=== PATIENT | female | born 1990 | race African-American/Black ===

== ENCOUNTER 2019-12-28 04:55 | Inpatient (IN) | payer MEDICAID ==
[~2019-12-28] VITALS: Ht 157.5 cm; Wt 54.4 kg
[2019-12-28 05:50] VITALS: BP 135/79
--- NOTE | 2019-12-28 05:50 | NUR ---
MS COLLECTIONS CURATOR NOTE PATIENT IS A DIRECT ADMIT FROM [facility]. PATIENT BROUGHT BY AMBULANCE. AMBULATED TO BED WITH STEADY GAIT. A/OX4. TOLERATING ROOM AIR. RESPIRATIONS ARE EVEN AND UNLABORED. NO S/S SOB NOTED. STATES SHE IS IN PAIN, INFORMED HER I WILL NEED TO LOOK AT THE DOCTORS ORDERS AND WAIT TO SEE WHEN PHARMACY VERIFIES THE MEDICATION. IN NO APPARENT DISTRESS. IV ACCESS IN RIGHT INDEX FINGER #[id number] PATENT AND SALINE LOCKED. INATAL PHYSICAL ASSESSMENT COMPLETED. SKIN ASSESSMENT COMPLETED, SKIN IS INTACT. LIVING NURSE OBTAINED BELONGINGS LIST AND VITAL SIGNS. MRSA SWAB DONE. BED IS LOW AND LOCKED HOB FLAT, SIDE RIALS UP X2, CALL LIGHT WITHIN REACH . WILL CONTINUE TO MONITOR.
[2019-12-28] MEDS ORDERED: ACETAMINOPHEN 325 MG TABLET PO PRN (07:00)
[2019-12-28] MEDS ORDERED: ZOLPIDEM TARTRATE 5 MG TABLET PO PRN (07:00)
[2019-12-28] MEDS ORDERED: MAG HYDROX/AL HYDROX/SIMETH 30 ML UDC PO PRN (07:00)
[2019-12-28] MEDS ORDERED: MAGNESIUM HYDROXIDE 30 ML UDC PO PRN (07:00)
[2019-12-28] MEDS ORDERED: Z GUARD REMEDY 2 OZ OINT TP PRN (07:00)
--- NOTE | 2019-12-28 07:34 | NUR ---
rn notes patient received on room air, no sob noted, patient is in pain at this time but waiting for pharmacy to verify medications. R finger 22 to be infused with NS. LABS pending at this time as patient refused the morning labs and told them to come back in 2 hours.
[2019-12-28] MEDS: HYDROMORPHONE INJ 2 MG/ML DISP.SYRIN IV PRN ×4 (07:50→20:30)
[2019-12-28] MEDS: IV NS 0.9% 1,000 ML IV SCH ×3 (07:50→20:45)
[2019-12-28] MEDS ORDERED: FERR325T24 PO (07:55)
[2019-12-28] MEDS ORDERED: FOLI0.4T2 PO (07:55)
[2019-12-28] MEDS ORDERED: OXYC-133 PO (07:55)
[2019-12-28 08:00] VITALS: BP 124/78
[2019-12-28] MEDS ORDERED: DIPH25CA51 PO (08:03)
--- NOTE | 2019-12-28 08:11 | NUR ---
MANAGER SCIENTIFIC/MED RECON MED RECON UPDATED. INFO OBTAINED FROM THE PATIENT. PATIENT REQUESTING BENADRYL VIA IV. CALLED AND SPOKE WITH DR. WINTER RELAYED RE: REQUEST FOR IV BENADRYL WITH NEW ORDER FOR PO BENADRYL. PRIMARY NURSE AWARE.
--- NOTE | 2019-12-28 08:18 | NUR ---
RN NOTES Patient requested IV benadryl from MD Moe but got an order for PO benadryl instead. Patient is refusing PO because she states she needs it now. Some swelling from her arm, but she states that she gets it when she takes dilaudid.
[2019-12-28] MEDS ORDERED: diphenhydrAMINE HCL 50 MG/ML VIAL IV ONE (09:40)
[2019-12-28] MEDS: ONDANSETRON HCL/PF 4 MG/2 ML VIAL IVP PRN ×2 (09:58→12:40)
[2019-12-28] MEDS: HYDROCODONE/APAP 5/325MG 1 EACH TABLET PO PRN ×2 (09:58→23:54)
[2019-12-28] MEDS: HYDROXYUREA 500 MG CAPSULE PO SCH (11:00)
[2019-12-28] MEDS ORDERED: Folic acid 1 MG in IV D5W 50 ML IV SCH (11:00)
[2019-12-28 12:41] LABS: BASOPHILS # (AUTO) 0.1 /CMM (0.0-0.2); BASOPHILS % (AUTO) 0.9 % (0.0-2.0); EOSINOPHILS % (AUTO) 12.6 % (0.0-6.0); HEMATOCRIT 30 % (33-45); HEMOGLOBIN 9.5 g/dL (11.5-14.8); LYMPHOCYTES # (AUTO) 2.3 /CMM (0.8-4.8); LYMPHOCYTES % (AUTO) 31.2 % (20.0-44.0); MEAN CORPUSCULAR HGB CONC 31 g/dl (31.0-36.0); MEAN CORPUSCULAR VOLUME 69 fL (82-100); MONOCYTES # (AUTO) 0.5 /CMM (0.1-1.30); MONOCYTES % (AUTO) 7.1 % (2.0-12.0); NEUTROPHILS # (AUTO) 3.6 /CMM (1.8-8.9); NEUTROPHILS % (AUTO) 48.2 % (43.0-81.0); PLATELET COUNT (AUTO) 363 /CMM (150-450); RED BLOOD CELL COUNT(AUTO) 4.35 MIL/uL (4.0-5.2); WHITE BLOOD COUNT (AUTO) 7.5 K/uL (4.3-11.0)
[2019-12-28 12:49] LABS: BILIRUBIN,TOTAL 0.1 mg/dL (0.2-1.0); CALCIUM, SERUM 8.1 mg/dL (8.5-10.1); MAGNESIUM 1.9 mg/dL (1.8-2.4); PHOSPHORUS 3.4 mg/dL (2.5-4.9); POTASSIUM 3.4 mmol/L (3.5-5.1); TOTAL PROTEIN, SERUM 6.6 g/dL (6.4-8.2)
[2019-12-28 16:00] VITALS: BP 118/73
[2019-12-28] MEDS ORDERED: POTASSIUM CHLORIDE 20 MEQ TAB.PRT.SR PO ONE (16:00)
--- NOTE | 2019-12-28 17:46 | NUR ---
rn notes patient remains on room air, no sob noted, a/o x4. States that pain is under control. ambulatory with steady gait. R finger 22 with NS @ 100 ml per hour. Patient requesting for IV benadryl, Dr. Moe aware. Only PO benadryl available. Patient has been trying to call MD's number as well via the business card. bed at the lowest setting, call light within reach, side rails up x2.
--- NOTE | 2019-12-28 19:25 | NUR ---
RN OPENING NOTES RECEIVED PATIENT RESTING IN BED A/O X 4, STABLE ON RA WITH BREATHING EVEN AND UNLABORED, NO SOB NOTED. NO SIGNS OF ACUTE DISTRESS. NO COMPLAINTS OF PAIN OR DISCOMFORT. IV LOCATED ON R FINGER #22 RUNNING NS @ 100ML/HR. PATIENT IS AMBULATORY, SKIN IS INTACT. SAFETY MEASURES HAVE BEEN PROVIDED AND IMPLEMENTED. PATIENT BED ALARM IS ON. HEAD OF BED ELEVATED. BED IS LOCKED, IN LOWEST POSITION AND SIDE RAILS UP. CALL LIGHT WITHIN REACH OF THE PATIENT. WILL CONTINUE TO MONITOR AND REASSESS FOR ANY CHANGES.
[2019-12-28 20:00] VITALS: BP 128/67
--- NOTE | 2019-12-28 21:15 | NUR ---
Called Dr. Brown and informed him that pt is requesting for Benadryl IV as pt doesn't want Benadryl PO. Advised him that Benadryl Inj has been DC today at [address] Glaser. No new order/s given by Dr. Brown. Patient informed and set up and charger.
[2019-12-28 22:00] VITALS: BP 128/67
[2019-12-28] MEDS ORDERED: diphenhydrAMINE HCL 50 MG CAPSULE ONE (22:17)
[2019-12-28] MEDS: DIPHENHYDRAMINE HCL 12.5 MG/5 ML UDC PO PRN (22:21)
[2019-12-29] MEDS: HYDROMORPHONE INJ 2 MG/ML DISP.SYRIN IV PRN ×6 (02:33→22:53)
--- NOTE | 2019-12-29 06:32 | NUR ---
RN CLOSING NOTE: PATIENT REMAINS IN ROOM RESTING COMFORTABLY.NO SIGNS OF RESPIRATORY, ON RA;TOLERATING WELL SATURATING @ >95% SP02. PATIENT IS CLEAN , DRY AND COMFORTABLE THROUGHOUT THE SHIFT. ALL DUE MEDS GIVEN ORDERED ; PATIENT TOLERATED WELL. SAFETY MEASURES IMPLEMENTED, BED IN LOWEST POSITION, LOCKED, SIDE RAILS UP, CALL LIGHT WITHIN REACH. ENDORSED TO ONCOMING SHIFT RN FOR CONTINUITY OF CARE.
[2019-12-29 06:41] LABS: BASOPHILS # (AUTO) 0.1 /CMM (0.0-0.2); EOSINOPHILS % (AUTO) 12.8 % (0.0-6.0); HEMATOCRIT 30 % (33-45); HEMOGLOBIN 9.6 g/dL (11.5-14.8); LYMPHOCYTES # (AUTO) 2.3 /CMM (0.8-4.8); LYMPHOCYTES % (AUTO) 29.1 % (20.0-44.0); MEAN CORPUSCULAR HGB CONC 32 g/dl (31.0-36.0); MEAN CORPUSCULAR VOLUME 69 fL (82-100); MONOCYTES # (AUTO) 0.7 /CMM (0.1-1.30); MONOCYTES % (AUTO) 8.5 % (2.0-12.0); NEUTROPHILS # (AUTO) 3.8 /CMM (1.8-8.9); NEUTROPHILS % (AUTO) 48.6 % (43.0-81.0); PLATELET COUNT (AUTO) 336 /CMM (150-450); RED BLOOD CELL COUNT(AUTO) 4.38 MIL/uL (4.0-5.2); WHITE BLOOD COUNT (AUTO) 7.8 K/uL (4.3-11.0)
[2019-12-29 07:29] LABS: CALCIUM, SERUM 8.9 mg/dL (8.5-10.1); MAGNESIUM 1.9 mg/dL (1.8-2.4); PHOSPHORUS 4.2 mg/dL (2.5-4.9); POTASSIUM 3.8 mmol/L (3.5-5.1)
[2019-12-29 08:00] VITALS: BP 112/67
--- NOTE | 2019-12-29 09:20 | NUR ---
ms rn received on bed, awake,alert,oriemted x4,not in any form of distress, respirations even and unlabored,no sob noted, lungs are clear,abdomen soft,positive bowel sounds,denies pain at this time.
--- NOTE | 2019-12-29 10:00 | NUR ---
ms rn new iv site inserted at left leg q 24 w/ good venous output, right thumb, not good anymore.
--- NOTE | 2019-12-29 10:30 | NUR ---
ms rn refusing iv fluids, makes her going to the bathroom more often.
[2019-12-29] MEDS: FOLIC ACID 1 MG TABLET PO SCH (10:55)
[2019-12-29] MEDS: HYDROXYUREA 500 MG CAPSULE PO SCH (10:56)
[2019-12-29] MEDS: IV NS 0.9% 1,000 ML IV SCH ×2 (13:00→23:00)
--- NOTE | 2019-12-29 18:12 | NUR ---
ms rn on bed, no distress noted,all needs attended.
[2019-12-29 20:00] VITALS: BP 121/71
--- NOTE | 2019-12-29 20:00 | NUR ---
RN NOTES RECEIVED PT. AWAKE ON BED, A/OX4, AMBULATORY, DENIES PAIN AT THIS TIME, NO SOB, CALL LIGHT WITHIN REACH, [id number], CONTINUE TO MONITOR
--- NOTE | 2019-12-29 21:00 | NUR ---
RN NOTES COMPLAINED OF GENERALIZED PAIN- DIALUDID 2MG IV GIVEN ORDERED, V/S STABLE Addendum: 12/30/19 at 0255 by YOLIE BOYD RN WRONG NOTES
--- NOTE | 2019-12-29 21:35 | NUR ---
RN NOTES COMPLAINED OF NOT SLEEPING AND WANT TO TAKE SLEEPING PILL- PT. HAS AMBIEN 5 MG BUT SHE ONLY TOOK 2.5MG BECAUSE THIS IS THE FIRST TIME SHE'S GOING TO TAKE THIS MEDICATION
--- NOTE | 2019-12-29 22:00 | NUR ---
RN NOTES PT. CALLED AND COMPLAINED THAT SHE'S HAVING DIFFICULTY OF BREATHING AFTER TAKING AMBIEN 2.5MG PO, PUT O2 AND CHECKED PT'S VITAL SIGN, AFTER 10 MINS PT'S FEELS BETTER AND DENIES DIFFICULTY OF BREATHING
--- NOTE | 2019-12-29 23:00 | NUR ---
RN NOTES COMPLAINED OF GENERALIZED PAIN- DILAUDID 2MG IV GIVEN ORDERED, V/S STABLE
[2019-12-30] MEDS: HYDROMORPHONE INJ 2 MG/ML DISP.SYRIN IV PRN ×4 (02:39→13:37)
--- NOTE | 2019-12-30 02:52 | NUR ---
RN NOTES COMPLAINED OF GENERALIZED PAIN- DILAUDID 2MG IV GIVEN ORDERED, V/ STABLE
[2019-12-30] MEDS: DIPHENHYDRAMINE HCL 12.5 MG/5 ML UDC PO PRN (03:38)
--- NOTE | 2019-12-30 06:40 | NUR ---
RN NOTES COMPLAINED OF GENERALIZED PAIN- DILAUDID 2MG IV GIVEN ORDERED, V/S STABLE, MORNING CARE RENDERED, PT. NEEDS ATTENDED
--- NOTE | 2019-12-30 07:55 | NUR ---
MS/RN OPENING NOTES RECEIVED PATIENT IN BED, ASLEEP, ALERT AND ORIENTED X 4. BREATHING EVEN AND UNLABORED. SHOWS NO SIGNS OF ACUTE RESPIRATORY DISTRESS, COMPLAINED OF PAIN RATE 03/29, WILL CHECKED MEDICATION ORDER. SAFETY PRECAUTIONS IN PLACE. BED IN LOWEST POSITION, LOCKED, AND CALL LIGHT KEPT WITHIN REACH. WILL CONTINUE TO MONITOR.
[2019-12-30 08:31] VITALS: BP 96/56
[2019-12-30] MEDS: HYDROXYUREA 500 MG CAPSULE PO SCH (09:00)
[2019-12-30] MEDS: FOLIC ACID 1 MG TABLET PO SCH (09:21)
[2019-12-30] MEDS: IV NS 0.9% 1,000 ML IV SCH (09:57)
--- NOTE | 2019-12-30 15:07 | NUR ---
MS/RN NOTES PATIENT IS ALERT AND ORIENTED X4. DENIES PAIN AT THIS TIME. PATIENT IN ROOM AIR AND SATURATION IS AT 98%. RESPIRATION REGULAR AND UNLABORED. THE PATIENT IN NO APPARENT DISTRESS. SEEN AND EXAMINED BY MD WITH ORDERS MADE AND CARRIED OUT. ALL DUE MEDICATION WAS GIVEN. PATIENT WAS GIVEN DISCHARGED INSTRUCTIONS AND PATIENT VERBALIZED UNDERSTANDING. PATIENT LEFT THE HOSPITAL IN STABLE CONDITION. 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
== END 2019-12-30 14:10 | disposition home or self-care (01) | DRG 662 ==
LOC: MED 05:41
PROVIDERS: ADMIT Internal Medicine; ATTEND Internal Medicine
DX: D57.00 Hb-SS disease with crisis, unspecified (principal); E87.6 Hypokalemia; F41.9 Anxiety disorder, unspecified; Z88.0 Allergy status to penicillin
CPT/HCPCS: 36415; 80048-TC; 80053-TC; 83735-TC; 84100-TC; 84703-TC; 85025-TC; 85045-TC; 87081-TC; G0378; J1170; J1200; J2405; J3490; J7030; J7060; Q0163